=== PATIENT | female | born 1955 | race Caucasian/White ===

== ENCOUNTER 2016-10-10 09:19 | Observation (INO) ==
[~2016-10-10 09:19] MED LIST: LEXISCAN ONE
--- NOTE | 2016-10-10 09:32 | ED EKG INTERP ---
EKG Interpretation - EKG Time of EKG reading by physician:: 09:22 EKG Read and Signed by:: Dharmesh Lomas EKG Interpretation (*Must complete 3 of following elements*): Normal Rate: 82 Rhythm: normal sinus rhythm Comments: normal ECG Attestation - Scribe Verification/Attestation Scribe:: Jayleen Blue Acting as Scribe for:: Dharmesh Lomas Scribe documention review:: This chart was documented by a scribe and accurately reflects the service the provider performed and the decisions made by the provider.
[2016-10-10] MEDS ORDERED: NITROGLYCERIN SL PRN (09:45)
--- NOTE | 2016-10-10 09:57 | Diag Imaging Result Document ---
PROCEDURE NAME: CHEST-PORTABLE - 10/10/2016 PORTABLE CHEST: FINDINGS: The lungs are well expanded. The heart is not enlarged. The vessels are not distended. No pneumonia. No pleural effusions identified. There has been prior surgery to the lower neck. IMPRESSION: Negative chest.
[2016-10-10 10:02] LABS: MANUAL DIFF NEEDED? NO
[2016-10-10 10:06] LABS: BASO% 0.5 % (0.0-0.8); EOS# 0.07 X1000 (0.0-0.7); EOS% 1.7 % (0.0-10.0); HEMATOCRIT 40.7 % (37.0-47.0); HEMOGLOBIN 13.9 g/dL (12.0-16.0); LYMPH# 1.25 X1000 (1.2-3.4); LYMPH% 31.2 % (20.5-51.1); MCH 32.1 PG (27-31); MCHC 34.2 g/dL (33-37); MONO# 0.27 X1000 (0.11-0.59); MONO% 6.7 % (1.7-9.3); MPV 10.3 FL (7.4-10.4); NEUT% 59.9 % (42.2-75.2); PLT 304 X1000 (130-400); RBC 4.33 XMIL (4.2-5.4)
[2016-10-10 10:21] LABS: INR 1.01 (0.86-1.15); PROTIME 13.6 Seconds (12.1-15.5)
[2016-10-10 10:22] LABS: PTT PL 34.2 Seconds (22.6-43.9)
[2016-10-10 10:27] LABS: AGAP 8; ALBUMIN 3.9 g/dL (3.5-5.0); ALKALINE PHOSPHATASE 75 U/L (32-104); BUN 12 mg/dL (8-22); CALCIUM 9.3 mg/dL (8.8-10.2); CHLORIDE 104 mmol/L (98-107); CK PROFILE 107 U/L (24-173); COSMO 276; DIRECT LDL 136 mg/dL; GOT 21 U/L (10-30); GPT 21 U/L (10-36); POTASSIUM 3.8 mmol/L (3.5-5.1); SODIUM 137 mmol/L (136-145); TCO2 25 mmol/L (25-35); TOTAL PROTEIN 6.3 g/dL (6.3-8.3)
[2016-10-10] MEDS ORDERED: PLAVIX PO ONE (10:32)
[2016-10-10] MEDS ORDERED: ZOFRAN IV ONE (10:32)
[2016-10-10] MEDS ORDERED: MORPHINE IV ONE (10:32)
--- NOTE | 2016-10-10 10:34 | EKG Report ---
Test Performed on : 10/10/2016 09:22:25 AM Test Reason : chest pain Blood Pressure : / mmHG Vent. Rate : 082 BPM Atrial Rate : 082 BPM P-R Int : 140 ms QRS Dur : 086 ms QT Int : 380 ms P-R-T Axes : 050 -06 049 degrees QTc Int : 443 ms Normal sinus rhythm. Normal ECG When compared with ECG of 03-FEB-2016 15:12, No significant change was found Unconfirmed Result
[2016-10-10] MEDS ORDERED: TYLENOL PO ONE (12:13)
--- NOTE | 2016-10-10 12:30 | ED EKG INTERP ---
EKG Interpretation - EKG Time of EKG reading by physician:: 11:53 EKG Read and Signed by:: Dharmesh Lomas EKG Interpretation (*Must complete 3 of following elements*): Normal Rate: 60 Rhythm: normal sinus rhythm Comments: normal ECG Attestation - Scribe Verification/Attestation Scribe:: Jayleen Blue Acting as Scribe for:: Sarath Camarillo Scribe documention review:: This chart was documented by a scribe and accurately reflects the service the provider performed and the decisions made by the provider.
--- NOTE | 2016-10-10 13:33 | PROVIDER DOCUMENTATION ---
HPI-Chest Pain - General Chief Complaint: Chest Pain Stated Complaint: SOB/CHEST PAIN Time Seen by Provider: 10/10/16 10:10 Source: patient, family Allergies/Adverse Reactions: Patient Allergies Allergy/AdvReac Type Severity Reaction Status Date / Time aspirin Allergy NAUSEA Verified 10/10/16 09:34 codeine Allergy NAUSEA/VOMI Verified 10/10/16 09:35 TING latex Allergy ITCHING Verified 10/10/16 09:34 Home Medications: Home Medication List Medication Instructions Recorded Confirmed Last Taken Type Alprazolam [Xanax] 0.5 mg PO HS 10/10/16 10/10/16 10/09/16 History Dicyclomine HCl 20 mg PO 10/10/16 10/10/16 History - History of Present Illness-CP Nature of Presenting Problem: This pt presents today c complaints of acute CP and SOB that began around midnight. She denies any previous hx. She has not had a stress test in >2years. She received nitro in the ED which she reports completely resolved her symptoms but did cause a CHRISTENSEN. No fever, chills, n/d/v or diaphoresis. No other issues or complaints. Location: reports: substernal Chest Pain Radiation: reports: no radiation Quality of Pain: reports: aching, dull Severity in ED: moderate Onset/Duration: last night Timing: still present Modifying Factors: improves with: nothing Nitro Today/Relief: 0.4 mg x 3, provided by ED, complete relief Aspirin Treatment Today: no aspirin today (pt has allergy; clopidegrel given) Prior Chest Pain/Cardiac Workup: reports: stress test (>2years ago) Similar Symptoms Previously?: No Recently Seen Here or By Another Healthcare Provider: No Review of Systems - Adult - REVIEW OF SYSTEMS - ADULT Constitutional: reports: no symptoms reported. denies: chills, fever Eyes: reports: no symptoms reported. denies: discharge, dry eyes Ears, Nose, Mouth & Throat: reports: no symptoms reported. denies: ear discharge, ear pain Cardiovascular: reports: chest pain. denies: irregular heart rate, orthopnea Respiratory: reports: shortness of breath. denies: chronic cough, cough Gastrointestinal: reports: no symptoms reported. denies: abdominal pain, hematemesis Genitourinary: reports: no symptoms reported. denies: dysuria, discharge Musculoskeletal: reports: no symptoms reported. denies: bone pain, back pain Integumentary: reports: no symptoms reported. denies: hives, hair loss Neurological: reports: no symptoms reported. denies: ataxia, dizziness/vertigo Psychiatric: reports: no symptoms reported. denies: anxiety, anti-depressant use Endocrine: reports: no symptoms reported Hematologic/Lymphatic: reports: no symptoms reported Allergic/Immunologic: reports: no symptoms reported All Other Systems: Reviewed and Negative Past History - Adult - PAST MEDICAL HISTORY-ADULT Review of Records: reports: Old Records Reviewed, Nursing Assessment Review, Medications Reviewed, Social history reviewed & non-contributory. Major Childhood Illnesses: reports: denies history Cardiovascular: reports: denies history Respiratory: reports: denies history Gastrointestinal: reports: denies history Obstetrical/Gynecological: reports: denies history Genitourinary: reports: denies history Musculoskeletal: reports: denies history Neurological: reports: denies history Endocrine/Immune: reports: denies history Other Conditions: reports: denies history Physical Exam-General - PHYSICAL EXAM-ADULT Initial Vital Signs Reviewed: Yes - CONSTITUTIONAL General Appearance: appears well, alert, no apparent distress - EYES Eyes: PERRL/EOMI, pink conjunctivae - HEAD, EARS, NOSE, MOUTH & THROAT HENMT: normocephalic/atraumatic, moist mucous membranes, normal ENT inspection - NECK Neck: non-tender, full range of motion, supple - RESPIRATORY Respiratory: chest non-tender, lungs clear, normal breath sounds, no pleuratic chest pain, no respiratory distress, no accessory muscle use, increased rate - CARDIOVASCULAR Cardiovascular: normal peripheral pulses, regular rate, rhythm, no edema, no gallop, no JVD, no murmur - GASTROINTESTINAL (ABDOMEN) Abdominal Exam: normal bowel sounds, non tender, soft - MUSCULOSKELETAL Back Exam: normal inspection, no CVA tenderness, no vertebral tenderness Extremity: normal range of motion, non-tender, normal gait, normal inspection - SKIN Integumentary: normal color, normal turgor, warm/dry - NEUROLOGIC Neurologic: grossly normal, no motor/sensory deficits - PSYCHIATRIC Psych/Mental Status: normal mood/affect, normal thought content, normal thought process, oriented x 3 Progress - PLAN OF CARE/RESULTS Progress/Plan/Lab Results: Laboratory Tests 10/10/16 10/10/16 10/10/16 09:45 09:45 09:45 WBC RBC Hgb Hct MCV MCH MCHC RDW Std Deviation Plt Count MPV Immature Gran % (Auto) Neut % (Auto) Lymph % (Auto) Norton % (Auto) Eos % (Auto) Baso % (Auto) Immature Gran # (Auto) Neut # (Auto) Lymph # (Auto) Norton # (Auto) Eos # (Auto) Baso # (Auto) PT INR APTT (Factor Assay) Sodium 137 Potassium 3.8 Chloride 104 Carbon Dioxide 25 Anion Gap 8 BUN 12 Creatinine 0.6 Estimated GFR/1.73 m2 > 60 BUN/Creatinine Ratio 20 Glucose 134 H Calculated Osmolality 276 Calcium 9.3 Total Bilirubin 0.30 AST 21 ALT 21 Alkaline Phosphatase 75 Creatine Kinase 107 Troponin T < 0.010 Qek-X-Psxarujuwew Pept 123 Total Protein 6.3 Albumin 3.9 Globulin 2.0 Albumin/Globulin Ratio 2.0 LDL Cholesterol Direct 136 Digoxin 10/10/16 10/10/16 10/10/16 09:45 09:45 09:45 WBC 4.01 L RBC 4.33 Hgb 13.9 Hct 40.7 MCV 94.0 MCH 32.1 H MCHC 34.2 RDW Std Deviation 13.2 Plt Count 304 MPV 10.3 Immature Gran % (Auto) 0.0 Neut % (Auto) 59.9 Lymph % (Auto) 31.2 Norton % (Auto) 6.7 Eos % (Auto) 1.7 Baso % (Auto) 0.5 Immature Gran # (Auto) 0.00 Neut # (Auto) 2.40 Lymph # (Auto) 1.25 Norton # (Auto) 0.27 Eos # (Auto) 0.07 Baso # (Auto) 0.02 PT 13.6 INR 1.01 APTT (Factor Assay) 34.2 Sodium Potassium Chloride Carbon Dioxide Anion Gap BUN Creatinine Estimated GFR/1.73 m2 BUN/Creatinine Ratio Glucose Calculated Osmolality Calcium Total Bilirubin AST ALT Alkaline Phosphatase Creatine Kinase Troponin T Lkb-G-Kyeyugkmgxc Pept Total Protein Albumin Globulin Albumin/Globulin Ratio LDL Cholesterol Direct Digoxin < 0.2 L 10/10/16 10/10/16 11:27 11:27 WBC RBC Hgb Hct MCV MCH MCHC RDW Std Deviation Plt Count MPV Immature Gran % (Auto) Neut % (Auto) Lymph % (Auto) Norton % (Auto) Eos % (Auto) Baso % (Auto) Immature Gran # (Auto) Neut # (Auto) Lymph # (Auto) Norton # (Auto) Eos # (Auto) Baso # (Auto) PT INR APTT (Factor Assay) Sodium Potassium Chloride Carbon Dioxide Anion Gap BUN Creatinine Estimated GFR/1.73 m2 BUN/Creatinine Ratio Glucose Calculated Osmolality Calcium Total Bilirubin AST ALT Alkaline Phosphatase Creatine Kinase 100 Troponin T < 0.010 Ltc-P-Pffyawnyybz Pept Total Protein Albumin Globulin Albumin/Globulin Ratio LDL Cholesterol Direct Digoxin Orders Category Date Time Status CHEST-PORTABLE [RAD] Stat Exams 10/10/16 09:29 Completed MYOCARDIAL PERFU SCAN, REST [NM] Routine Exams 10/10/16 13:29 Ordered CBC WITH ELECTRONIC DIFF [HEME] Stat Lab 10/10/16 09:45 Completed CK PROFILE [SP CHEM] Stat Lab 10/10/16 09:45 Completed CK PROFILE [SP CHEM] Stat Lab 10/10/16 11:27 Completed COMPREHENSIVE METABOLIC PANEL [CHEM] Stat Lab 10/10/16 09:45 Completed DIGOXIN [TDM] Stat Lab 10/10/16 09:45 Completed DIRECT LDL [LIPIDS] Stat Lab 10/10/16 09:45 Completed PRO B-NATRIURETIC PEPTIDE Stat Lab 10/10/16 09:45 Com[address]IME WITH INR PL [COAG] Stat Lab 10/10/16 09:[address] [COAG] Stat Lab 10/10/16 09:45 Completed TROPONIN T Stat Lab 10/10/16 09:45 Completed TROPONIN T Stat Lab 10/10/16 11:27 Completed Acetaminophen [Tylenol] Med 10/10/16 12:13 Discontinued 650 mg PO NOW ONE Clopidogrel [Plavix] Med 10/10/16 10:32 Discontinued 75 mg PO NOW ONE Morphine Med 10/10/16 10:32 Discontinued 4 mg IV NOW ONE Nitroglycerin Sl [Nitroglycerin] Med 10/10/16 09:45 Active 0.4 mg SL Q5M PRN PRN Ondansetron [Zofran] Med 10/10/16 10:32 Discontinued 4 mg IV NOW ONE EKG [EKG] Stat Ther 10/10/16 09:28 Draft EKG [EKG] Stat Ther 10/10/16 11:16 Ordered Transfer/Admit Order [TRANSFER] Routine Transfer 10/10/16 13:29 Ordered Vital Signs Temp Pulse Resp BP Pulse Ox 10/10/16 13:19 60 22 123/74 95 10/10/16 11:59 61 20 118/67 96 10/10/16 09:23 98.8 F 85 27 H 135/79 98 aspirin Allergy (Verified 10/10/16 09:34) NAUSEA codeine Allergy (Verified 10/10/16 09:35) NAUSEA/VOMITING latex Allergy (Verified 10/10/16 09:34) ITCHING Alprazolam [Xanax] 0.5 mg PO HS 10/10/16 Dicyclomine HCl 20 mg PO 10/10/16 Laboratory 10/10/16 10/10/16 10/10/16 11:27 11:27 09:45 WBC RBC Hgb Hct MCV MCH MCHC RDW Std Deviation Plt Count MPV Immature Gran % (Auto) Neut % (Auto) Lymph % (Auto) Norton % (Auto) Eos % (Auto) Baso % (Auto) Immature Gran # (Auto) Neut # (Auto) Lymph # (Auto) Norton # (Auto) Eos # (Auto) Baso # (Auto) PT 13.6 INR 1.01 APTT (Factor Assay) 34.2 Sodium Potassium Chloride Carbon Dioxide Anion Gap BUN Creatinine Estimated GFR/1.73 m2 BUN/Creatinine Ratio Glucose Calculated Osmolality Calcium Total Bilirubin AST ALT Alkaline Phosphatase Creatine Kinase 100 Troponin T < 0.010 Zgs-B-Ewyfkfvwuuu Pept Total Protein Albumin Globulin Albumin/Globulin Ratio LDL Cholesterol Direct Digoxin 10/10/16 10/10/16 10/10/16 09:45 09:45 09:45 WBC 4.01 L RBC 4.33 Hgb 13.9 Hct 40.7 MCV 94.0 MCH 32.1 H MCHC 34.2 RDW Std Deviation 13.2 Plt Count 304 MPV 10.3 Immature Gran % (Auto) 0.0 Neut % (Auto) 59.9 Lymph % (Auto) 31.2 Norton % (Auto) 6.7 Eos % (Auto) 1.7 Baso % (Auto) 0.5 Immature Gran # (Auto) 0.00 Neut # (Auto) 2.40 Lymph # (Auto) 1.25 Norton # (Auto) 0.27 Eos # (Auto) 0.07 Baso # (Auto) 0.02 PT INR APTT (Factor Assay) Sodium Potassium Chloride Carbon Dioxide Anion Gap BUN Creatinine Estimated GFR/1.73 m2 BUN/Creatinine Ratio Glucose Calculated Osmolality Calcium Total Bilirubin AST ALT Alkaline Phosphatase Creatine Kinase Troponin T Brz-N-Oygyysxvbwg Pept 123 Total Protein Albumin Globulin Albumin/Globulin Ratio LDL Cholesterol Direct Digoxin < 0.2 L 10/10/16 10/10/16 09:45 09:45 WBC RBC Hgb Hct MCV MCH MCHC RDW Std Deviation Plt Count MPV Immature Gran % (Auto) Neut % (Auto) Lymph % (Auto) Norton % (Auto) Eos % (Auto) Baso % (Auto) Immature Gran # (Auto) Neut # (Auto) Lymph # (Auto) Norton # (Auto) Eos # (Auto) Baso # (Auto) PT INR APTT (Factor Assay) Sodium 137 Potassium 3.8 Chloride 104 Carbon Dioxide 25 Anion Gap 8 BUN 12 Creatinine 0.6 Estimated GFR/1.73 m2 > 60 BUN/Creatinine Ratio 20 Glucose 134 H Calculated Osmolality 276 Calcium 9.3 Total Bilirubin 0.30 AST 21 ALT 21 Alkaline Phosphatase 75 Creatine Kinase 107 Troponin T < 0.010 Cah-V-Nyswwdzlvwu Pept Total Protein 6.3 Albumin 3.9 Globulin 2.0 Albumin/Globulin Ratio 2.0 LDL Cholesterol Direct 136 Digoxin Will admit for CP r/o. - XRAY 1 XRAY Study: Chest Impression: Normal - CONSULTS/PCP/HOSPITALIST Notification #1 *Consult/PCP/Hospitalist*: Dr. Quezada Time Discussed: 13:33 Consult Disposition: Admit Departure - Departure Time of Disposition Order: 13:33 DIAGNOSIS: Chest pain Qualifiers: Chest pain type: unspecified Qualified Code(s): R07.9 - Chest pain, unspecified Disposition: ADMITTED INPATIENT 09 Certified Medical Emergency: Emergent Condition: Stable Attestation - Physician/ CHEIKH Attestation Patient care was provided by Advanced Practice Provider:: Yes Advanced Practice Provider:: Sarath Camarillo Advanced Practice Provider documentation review:: The Mid-level provider documentation, treatment plan and medical decision making was reviewed by the physician who agrees with all treatment and medical decision making by the MLP.
[2016-10-10] MEDS ORDERED: ZOFRAN IV PRN ×2 (13:34→14:45)
[2016-10-10] MEDS ORDERED: MORPHINE IV PRN ×3 (13:34→16:20)
--- NOTE | 2016-10-10 14:10 | EKG Report ---
Test Performed on : 10/10/2016 11:53:09 AM Test Reason : repeat cardiac Blood Pressure : / mmHG Vent. Rate : 060 BPM Atrial Rate : 060 BPM P-R Int : 152 ms QRS Dur : 090 ms QT Int : 432 ms P-R-T Axes : 030 000 027 degrees QTc Int : 432 ms Normal sinus rhythm. Normal ECG When compared with ECG of 10-OCT-2016 09:22, (Unconfirmed) No significant change was found Unconfirmed Result
[2016-10-10] MEDS ORDERED: TYLENOL PO PRN (14:45)
--- NOTE | 2016-10-10 20:17 | HISTORY AND PHYSICAL ---
CHIEF COMPLAINT: Chest pressure. HISTORY OF PRESENT ILLNESS: This is a 61-year-old female with chest pressure. No real medical problems. She is not hypertensive. No diabetes. She does smoke. No family history, but she came in with chest pain which was on her left-side. It has been going on for about 2 days, pressure-like. Radiating to her left arm. 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 She has had issues with cervical radiculopathy in the past with right-sided weakness, which had been surgically corrected with a laminectomy decompression. She does admit to progressive dyspnea on exertion. Intermittent chest pain for the last 2 weeks. She has had a stress test in the past several years ago which was reportedly negative. She does admit to nausea, but no kristel emesis. Workup in the ER was negative. Her EKG was really nonspecific. Her cardiac enzymes x2 are negative. Patient placed in observation for chest pain. She was treated for bronchitis about a month ago and otitis. She does report a little bit a cough, but no fevers, chills. PAST MEDICAL HISTORY: Denies. Looks like she has got irritable bowel syndrome, anxiety and osteoporosis. FAMILY HISTORY: Reviewed, noncontributory. No first-degree CAD relative. SOCIAL HISTORY: She smokes about 6 cigarettes a day. That is maybe a 3rd of a pack a day. No ethanol. No street drugs. Daughter was present in the room, very involved in her care. ALLERGIES: Codeine, latex and aspirin. REVIEW OF SYSTEMS: Negative except as outlined in the HPI and reviewed per 10 systems. PHYSICAL EXAMINATION: VITAL SIGNS: Blood pressure 121/69, heart rate of 98, respiratory rate 18, temperature 98.5 degrees, 98% on room air. CARDIOVASCULAR: Regular rate and rhythm. PULMONARY: Bilateral breath sounds. Clear to auscultation. GI: Soft, nontender, nondistended. Bowel sounds are positive. EXTREMITIES: No clubbing or cyanosis. LYMPHATICS: No peripheral edema. NEUROLOGICAL: Nonfocal. PERTINENT DATA: Normal CBC. Normal CMP. Negative troponins. I do not know why we checked a digoxin level on her, but we did. Urine was clear. Chest x-ray was clear. EKG was showed no specific ischemic ST changes. Laboratory data as described. ASSESSMENT: A 61-year-old female, a smoker, about the only major risk factor, presenting with atypical chest pain. PROBLEMS: Atypical chest pain. We will rule out with serial cardiac enzymes. Monitor on telemetry. Pursue Lexiscan and echocardiogram because she does report some lower extremity edema. If stable, likely discharge in 24 hours. She will need outpatient follow up with Gastroenterology and further evaluation.
[2016-10-10] MEDS: BENTYL PO SCH (20:28)
[2016-10-10] MEDS: XANAX PO SCH (20:29)
[2016-10-10] MEDS: LEXAPRO PO SCH (20:29)
[2016-10-11 07:26] LABS: HDL 63 mg/dL (45-65); LDL 145 mg/dL; TRIGLYCERIDES 135 mg/dL (35-135); VLDL 27 mg/dL
--- NOTE | 2016-10-11 13:44 | Diag Imaging Result Document ---
PROCEDURE NAME: MYOCARDIAL PERF SCAN, STR/REST - 10/11/2016 INDICATION: Chest pain. PROCEDURES PERFORMED: 1. One-day stress/rest myocardial perfusion imaging. 2. Lexiscan stress (results dictated separately by primary physician). PROCEDURE DETAIL: Ms. Stevenson was brought to the [facility] and had a resting study with injection of 11.5 millicuries of technetium-99 sestamibi with usual imaging protocol utilized. She subsequently had a Lexiscan stress and at peak stress was injected with 33.1 mCi of technetium- 99 sestamibi with usual imaging protocol utilized. FINDINGS: 1. There is some radiotracer uptake that appears external located in the left upper extremity and seen only stress images. This is likely external contamination. In addition, there does appear to be some increased thyroid uptake on this study as well. 2. TID ratio is 1.03. 3. Perfusion imaging shows a very small size mild intensity defect at the apex. This could be an extremely small burden of ischemia versus possible shifting soft tissue attenuation artifact or possibly apical thinning artifact. Either way it is an extremely small size defect. A trial of medical therapy would be possible if it is the appropriate clinical situation. 4. Normal ejection fraction of 79%. End-diastolic volume is 74, end-systolic volume of 16. Normal wall motion is noted.
[2016-10-11] MEDS: XANAX PO SCH (21:10)
[2016-10-11] MEDS: LOPRESSOR PO SCH (21:10)
[2016-10-11] MEDS: LEXAPRO PO SCH (21:10)
[2016-10-11] MEDS: BENTYL PO SCH (21:11)
--- NOTE | 2016-10-11 23:39 | CONSULTATION ---
DATE OF CONSULTATION: 10/11/2016 CHIEF COMPLAINT: Chest discomfort. CONSULTATION REQUESTED BY: Hospitalist Service. REASON FOR CONSULTATION: Chest discomfort, abnormal stress test. HISTORY: Ms. 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 This went on through the hours of Monday and then on Monday morning she decided to come to the emergency room. They did an EKG that showed sinus rhythm, no acute ischemic changes. She was given nitroglycerin which seemed to take the discomfort away very quickly. The patient was referred for a stress test which was done today and reported by Dr. Denis Camarillo as suspicious for a small reversible defect in the apex of the left ventricle. The patient's ejection fraction was found to be normal. The patient says that since the nitroglycerin was given to her she has not had any further complaints. She does not have any history of heart disease in the past. PAST MEDICAL HISTORY: Her past history is positive for previous complaints of neck pain and chest discomfort. In 2011, she was referred to Dr. Álvaro Acuña who performed a heart cath which showed her coronaries were normal. She has been treated for hypertension at some point and subsequently she has been treated for depression. She has taken Lexapro and Xanax. The patient has some history of irritable bowel and she has been followed by Dr. Ortiz in the past. PAST SURGICAL HISTORY: Her surgical history is positive for hysterectomy, endometriosis, section, she has had also neck surgery in 2013 and right knee surgery in 2011. SOCIAL HISTORY: She is . She has two grownup children. One of them was in the room with her. She is a smoker. She smokes 6-7 cigarettes a day. She used to smoke up to a pack a day for many years. She has gradually weaned herself off the cigarettes. 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 FAMILY HISTORY: Family history is really noncontributory for the purposes of this hospitalization. HOME MEDICATIONS: 1. Lexapro 10 mg at bedtime. 2. Dicyclomine 20 mg at bedtime. 3. Alprazolam 0.5 mg at bedtime. 4. Atelvia 35 mg daily. ALLERGIES: She is allergic to aspirin, codeine, and latex. REVIEW OF SYSTEMS: Review of systems is really noncontributory. She is active. She works every day. She has no physical limitations at this point in time. Ever since the neck surgery, she has been essentially very functional. PHYSICAL EXAMINATION: VITAL SIGNS: Blood pressure 120/62. Temperature 98.7. Pulse 63. Respirations 18. GENERAL: She is awake, alert, oriented, in no distress. HEENT: Unremarkable. CHEST: Clear to auscultation and percussion. CARDIAC: Heart sounds regular and rhythmic. No gallop or murmur. ABDOMEN: Nontender. Soft. No masses. No hepatomegaly. EXTREMITIES: Showed good pulses. No peripheral edema. NEUROLOGIC: She moves all extremities. LABORATORY DATA: Sodium 137, potassium 3.8, BUN 12, creatinine 0.6. Troponin has been checked 3 times. It is negative. Pro BNP is normal at 123. HDL cholesterol is 63, LDL 145, total cholesterol 235. TSH is normal. Hemoglobin normal. Chest x-ray was done at the time of presentation and it was reportedly normal. IMPRESSION: 1. Patient who has an abnormal myocardial perfusion stress test. She presented with chest pains to the emergency department that were relieved by nitroglycerin. That raises concern for coronary heart disease. 2. Patient has some degree of hyperlipidemia. 3. Patient is a tobacco user. 4. History of irritable bowel. 5. History of degenerative joint disease. RECOMMENDATIONS: At this point in time, I would suggest to obtain a cardiac CTA as the quickest way of finding out if she has developed any significant stenosis since her last heart catheterization. Benefits, risks, complications were explained to her. We will arrange for that to be done in the morning.
[2016-10-12] MEDS: LOPRESSOR PO SCH ×2 (01:55→08:09)
--- NOTE | 2016-10-12 08:03 | PROGRESS NOTE ---
DATE: 10/11/2016 SUBJECTIVE: The patient notes that her chest pain is resolved, although it did get better when she had nitroglycerin in the ER. She denies any current chest pain. Denies any palpitations, denies any GI or issues. OBJECTIVE: Vital Signs: Reviewed. Temperature 97, pulse 59, respiratory rate 18, BP 116/67, saturation 96% on room air. General: Patient is well-developed, well-nourished. She is currently in no real respiratory distress. She is awake and alert. Neck: Supple. CV: Regular rate. Chest: Relatively clear. Abdomen: Soft, nondistended. Extremities: Moves all extremities. Neurologic: No changes. LABS: Reviewed. Troponins are negative. GXT is pending. LDL 145, total 235. HDL is 63. ASSESSMENT: Chest pain. Appears atypical, although interestingly, it did relieve with nitroglycerin which certainly adds some concern. She will have a stress test later this afternoon. If this will be negative, she will be discharged home. If it is positive, then we will re-evaluate and discuss with cardiology.
[2016-10-12 08:05] VITALS: BP 108/54
--- NOTE | 2016-10-12 08:09 | PROGRESS NOTE ---
DATE: 10/12/2016 SUBJECTIVE: The patient denies any current chest pains this morning. States that she slept well. Notes that she is ready to go home. OBJECTIVE: Vital Signs: Reviewed. She is afebrile. Temperature 98, pulse 55, respiratory rate 18, BP 128/80. General: Patient is well-developed, well-nourished. She is currently in no real respiratory distress. She is awake, alert. Neck: Supple. CV: CV regular rate. Chest: Relatively clear. Abdomen: Soft. Extremities: Moves all extremities. Neurologic: No changes. ASSESSMENT: 1. Chest pain atypical in nature. Although her GXT was abnormal. Therefore Cardiology was consulted. 2. Hyperlipidemia. 3. Chronic tobacco abuse. 4. History of irritable bowel syndrome. 5. History of degenerative joint disease. PLAN: Given the fact the patient's GXT was abnormal, Cardiology was consulted. Dr. France felt as though she needed to stay in the hospital and have a cardiac CT this morning. This has been ordered. Hopefully, this will be negative and she can be discharged home. However, certainly would suggest the patient treat her cholesterol and stop smoking. We will start her on Zocor at night and she will follow up with her primary care.
--- NOTE | 2016-10-12 10:33 | Diag Imaging Result Document ---
PROCEDURE NAME: CT-ANGIOGRAM HEART W/WO CONT - 10/12/[address] CORONARY ANGIOGRAM: FINDINGS: The coronary calcium score is 0 which is consistent with a very low risk of coronary disease for the next 15 years. There is suboptimal opacification of the pulmonary arteries but no definite filling defects are demonstrated in the portions included on the study. The ascending aorta is the upper limits of normal in diameter measuring slightly over 3.9 cm in diameter. There is no evidence of dissection. There is no evidence of significant adenopathy. There is a hiatal hernia. There are some linear opacities in the lower lobes particularly the left which may be due to fibrosis. There is an accessory fissure in the right lower lobe. There are also linear opacities in the lingula which may indicate atelectasis or fibrosis. IMPRESSION: Fibrotic versus atelectatic opacities in both lung bases. Otherwise, no evidence of acute disease. Hiatal hernia.
[2016-10-12] MEDS ORDERED: NITROGLYCERIN LINGUAL SPRAY ONE (11:58)
--- NOTE | 2016-10-12 12:52 | GRADED EXERCISE REPORT ---
DATE: 10/11/2016 INDICATIONS: Chest pain. ORDERING PHYSICIAN: Dr. Quezada. FINDINGS: Baseline heart rate 55, blood pressure 110/72. Baseline EKG normal sinus rhythm. No axis deviation. No ST changes. No ischemic ST changes. The patient underwent Lexiscan per protocol with 0.4 mg IV infused. She did develop shortness of breath, some degree of chest tightness but not as much and not similar to what she had when she came into the hospital. No ST changes were noted on her EKGs. She recovered without difficulty. Max heart rate 81, max blood pressure 110/72. The test was felt to be clinically and electrically negative. Myocardial perfusion imaging reported elsewhere.
--- NOTE | 2016-10-12 13:13 | CTA CORONARY ---
DATE: 10/12/2016 INTERPRETING PHYSICIAN: Marcos France MD. INDICATION FOR STUDY: A 61-year-old female with chest pain suspicious for angina pectoris. She was taken to the nuclear stress lab, and the study showed reversible defect in the apical anterior portion of the left ventricle. Coronary heart disease was suspected. However, the suspicion was only moderate. We discussed the possible diagnostic options, and we chose to pursue cardiac CTA. DESCRIPTION OF PROCEDURE: The patient came into the cardiac CT suite in the fasting state. She received intravenous dye per protocol. Tomographic views of the cardiac structures were obtained. SUMMARY: The following is a summary of the anatomical findings. 1. The left atrium, left atrial appendage, and mitral valve appear to be morphologically normal. 2. The pulmonary veins show normal morphology, two superior and two inferior pulmonary veins. 3. The aorta does not appear to be dilated. The aortic valve appears to be morphologically normal with 3 cusps. The descending thoracic aorta and the arch appear to be normal. 4. The pulmonary arteries have normal morphology and normal branching without any unusual filling defect. 5. The left ventricle shows normal ventricular volumes. End-diastolic volume is 69.8 mL. Ejection fraction is 65%. 6.Coronary arteries: 1)Left main coronary artery: The left main coronary artery arises from the left coronary sinus of Valsalva in a normal fashion. The left main coronary artery is anatomically normal. It divides into LAD and ramus intermedius as well as a circumflex branch. 2)Left anterior descending coronary artery: The left anterior descending coronary artery is anatomically normal. It gives rise to two diagonal vessels. They are small in size. The LAD proper is free of any obstruction, and it reaches the apex of the left ventricle. No definite lesion is noted distally. The LAD seems to wrap around the apex of the left ventricle. 3)Ramus intermedius: The ramus intermedius is a very tiny vessel without any significant stenosis. 4)Circumflex coronary artery. The circumflex coronary artery appears to be anatomically normal. Basically, it courses down the AV groove and terminates into a small-size posterolateral vessel. Circumflex system is free of obstruction. 5)Right coronary artery: The right coronary artery is a dominant system. It arises from the right coronary sinus of Valsalva. The right coronary artery gives rise to a sinus tia branch. It then gives rise to the acute marginal vessels. The right coronary artery distally divides into a posterior descending branch and a posterolateral system. These two vessels are equally relatively large in extension and they cover a fair amount of myocardium, each one of them. The right coronary artery is anatomically normal and free of obstruction. 7. Calcium score: The coronary calcium score is zero. 8. Pericardium: The pericardium is free of any abnormality. CONCLUSION: In summary, this study shows: 1. Essentially normal coronary anatomy. The patient has a dominant right coronary artery system. The left main, LAD, and circumflex are normal. The patient has a small ramus intermedius. All those vessels are normal. 2. Coronary calcium score is zero. 3. Anatomically normal pulmonary veins, pulmonary arteries, aorta, and atria. 4. No pericardial abnormalities noted. Clinical correlation recommended.
--- NOTE | 2016-10-12 19:16 | ECHO REPORT ---
ORDER DATE: 10/11/2016 INTERPRETING PHYSICIAN: Dr. France REQUESTING PHYSICIAN: CLINICAL INDICATIONS: -year-old with . M-MODE MEASUREMENTS: Right ventricle: 3.1 cm. Left ventricle end diastole: 4.5 cm. Left ventricle end systole: 2.9 cm. Posterior wall: 1.2 cm. Interventricular septum: 1.2 cm. Left atrium: 3.9 cm. Aortic root: 3.4 cm. SUMMARY OF 2-DIMENSIONAL IMAGING: The left ventricular function is normal. Ejection fraction estimated at 60-65%. No wall motion abnormality is noted. The right ventricle appears to be normal. The atria appear to be normal. The aortic valve is normal. Color flow mapping unremarkable. The pulmonic valve looks normal. Color flow mapping unremarkable. The mitral valve looks normal. Color flow mapping indicates a mild degree of regurgitation. Pulse wave Doppler of mitral inflow is normal. Tissue Doppler of septal and lateral mitral annulus averages 12 cm per second. There is no diastolic dysfunction. The tricuspid valve shows a mild degree of regurgitation. The inferior vena cava is not dilated. The pulmonary systolic pressure is estimated at 41 mmHg. IMPRESSION: In summary, this study shows: 1. Normal left ventricular systolic function. 2. No diastolic dysfunction. 3. Mild elevation of pulmonary pressure. 4. No evidence of any significant valvular abnormality. Clinical correlation recommended.
[2016-10-12] MEDS ORDERED: ZOCOR PO SCH (21:00)
--- NOTE | 2016-10-13 06:31 | DISCHARGE SUMMARY ---
ADMISSION DATE: 10/10/2016 DISCHARGE DATE: 10/12/2016 PRIMARY CARE PHYSICIAN: Dr. Magda Reynaga MD MEDICAL COORDINATOR PESTICIDE USE: Dr. Marcos France MD DIAGNOSES: 1. Atypical chest pain. 2. Abnormal myocardial perfusion stress test. 3. Hyperlipidemia. 4. Tobacco abuse. 5. Irritable bowel. 6. Degenerative joint disease. DIAGNOSTICS: 1. 10/10/2016 chest x-ray revealed a negative chest. 2. 10/11/2016 myocardial perfusion nuclear scan. EF is 79%. Normal wall motion. She had some radiotracer uptake that appeared external in the left upper extremity. 3. Perfusion imaging shows a very small size mild intensity defect at the apex, which could represent a very small burden of ischemia versus shifting soft-tissue attenuation artifact or possibly an apical thinning artifact. 4. Gated Study test was felt to be clinically and electrically negative baseline. The patient did develop shortness of breath with some degree of chest tightness. No ST-T changes were noted on her EKGs. She did recover without difficulty with a max heart rate of 81, max blood pressure of 110/72. 5. On 10/12/2016, cardiac CT fibrotic versus atelectatic opacities in both lung bases. Otherwise, no evidence of acute disease. Hiatal hernia. 6. Coronary angiography with essentially normal coronary anatomy. She does have a dominant right system with a left main LAD and circumflex normal. Coronary calcium score is 0. Anatomically normal pulmonary veins, pulmonary arteries, aorta and atria. No pericardial abnormalities noted. HOSPITAL COURSE: Ms. Stevenson presented to the emergency room complaining of chest pain. 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 She has had this in the past. She cannot identify any alleviating or exacerbating factors prior to this ER visit. She does have a history of cervical radiculopathy and she had the same symptoms on the right side that did resolve with laminectomy decompression. She has not followed up with her medical doctor physician or the surgeon. She underwent a nuclear stress test Lexiscan. She did have a very small abnormality. Dr. France from Cardiology was consulted. She then underwent coronary angiography CT as well as a cardiac CT and was found have a calcium score of 0 with normal coronary arteries. She was found to have a hiatal hernia that she states she was unaware of. She had no further chest pain once resolution was obtained in the emergency room. Vital signs were stable throughout the hospitalization. Labs were essentially negative. She did have negative cardiac troponin's x3. PHYSICAL EXAMINATION: Cardiovascular: Regular rate and rhythm. S1, S2 appreciated. Pulmonary: Breath sounds are clear. No increased work of breathing noted. Gastrointestinal: Abdomen is soft, nontender, and nondistended with bowel sounds in all 4 quadrants. Extremities: No clubbing, cyanosis, or edema. Calves nontender. Pulses palpable x4. DISCHARGE MEDICATIONS: 1. Lexapro 10 at bedtime. 2. Dicyclomine 20 at bedtime. 3. Xanax 0.5 at bedtime. 4. Prilosec 20 daily. 5. Atelvia daily. DISCHARGE DIET: Healthy heart. DISCHARGE ACTIVITY: As tolerated. FOLLOWUP: 1. She needs to follow up with her primary care physician in the next 1-[address] Ortiz for GI work up. 3. Dr. Merritt per her request for paresthesias to her left hand. 4. She has been instructed to return to the emergency room or call to be seen sooner for any recurrence of symptoms, questions or concerns she may have. She is being discharged home in stable condition with family members. TIME SPENT: This is a greater than 30 minute discharge. Dictated by ABDIEL Ram for Mirza Casper MD
== END 2016-10-12 15:50 | disposition home or self-care (01) ==
LOC: P.ED 09:19 → INTOOBSV 09:20 → P.MEDSURG 09:20
PROVIDERS: ATTEND Family Medicine
DX: R07.89 Other chest pain (principal); R94.39 Abnormal result of other cardiovascular function study; E78.5 Hyperlipidemia, unspecified; F17.210 Nicotine dependence, cigarettes, uncomplicated; K58.9 Irritable bowel syndrome, unspecified; M19.90 Unspecified osteoarthritis, unspecified site; R60.0 Localized edema; F32.9 Major depressive disorder, single episode, unspecified; M79.602 Pain in left arm; R20.2 Paresthesia of skin; R06.00 Dyspnea, unspecified; R11.0 Nausea; R06.02 Shortness of breath; R20.9 Unspecified disturbances of skin sensation; Z79.899 Other long term (current) drug therapy
CPT/HCPCS: 36415; 71010; 75574; 78452; 80053; 80061; 80162; 82550; 83721; 83880; 84443; 84484; 85025; 85610; 85730; 93005; 93017; 93306; 99285; A9500; J2270; J2405; Q9967